=== PATIENT | male | born 1930 | race Caucasian/White ===

== ENCOUNTER 2017-08-21 13:23 | Emergency (ER) | payer MEDICARE, OTHER ==
[~2017-08-21] VITALS: Ht 165.1 cm; Wt 62.0 kg
[~2017-08-21 13:23] MED LIST: AMLO2.5C PO; DICL1GEL7 TOPICAL; MELO15TA20 PO; PROT40TA PO; TRAM50TA PO; TRIA1SPR6 EACH NARE; VITA10004 PO
[2017-08-21 13:47] VITALS: BP 113/55; PULSE 95; RESP 17; TEMP 98.9; O2SAT 96
[2017-08-21] MEDS ORDERED: CEPH-460 PO (14:03)
--- NOTE | 2017-08-21 14:03 | PD ---
HPI Chief Complaint: Skin Problem Time Seen by Provider: 13:52 Travel History International Travel<30 days: No Contact w/Intl Traveler<30days: No Traveled to known affect area: No History of Present Illness HPI 86-year-old male originally from [place], presents to the emergency department with itchy erythematous somewhat tender spot to the left dorsal foot for the past several days. He states he is more itchy than tender. He has been using topical nonsteroidal cream with some improvement. He denies fever, chills, or significant pain. He states his is worried which is why he came in today. He has no other acute complaints. He has no known drug allergies. PFSH Past Medical History Cancer: No Cardiovascular Problems: No Diabetes: No Endocrine: No Gastrointestinal Disorders: Yes (GERD) Hepatitis: No Hiatal Hernia: No Hypertension: Yes Immune Disorder: No Musculoskeletal: No Neurologic: No Psychiatric: No Respiratory: No Thyroid Disease: No Past Surgical History Abdominal Surgery: No AICD: No Body Medical Devices: N/A Cardiac Surgery: No Ear Surgery: No Endocrine Surgery: No Eye Surgery: Yes (cataracts) Genitourinary Surgery: Yes (??HYDROCELECTOMY) Joint Replacement: No Oral Surgery: Yes Pacemaker: No Thoracic Surgery: No Tonsillectomy: Yes Social History Alcohol Use: Yes (sometimes) Tobacco Use: No Substance Use: No Allergies-Medications (Allergen,Severity, Reaction): Coded Allergies: No Known Allergies (Unverified Adverse Reaction, Unknown, 08/21/17) Reported Meds & Prescriptions Reported Meds & Active Scripts Active Amlodipine-Benazepril 2.5-10 Mg Cap 1 Cap PO DAILY Review of Systems Except as stated in HPI: all other systems reviewed are Neg General / Constitutional: No: Fever Eyes: No: Visual changes HENT: No: Headaches Cardiovascular: No: Chest Pain or Discomfort Respiratory: No: Shortness of Breath Gastrointestinal: No: Abdominal Pain Genitourinary: No: Dysuria Musculoskeletal: No: Pain Skin: Positive Itching (See history of present illness), Positive Lesions, No Rash Neurologic: No: Weakness Psychiatric: No: Depression Endocrine: No: Polydipsia Hematologic/Lymphatic: No: Easy Bruising Physical Exam Narrative GENERAL: Patient is in no acute distress. SKIN: Warm and dry. Normal color. Normal turgor. Somewhat atrophic. Patient has a area of erythema and mild swelling measuring approximately 1 inch in diameter, on the dorsal left foot, without signs of significant abscess or lymphangitis. HEAD: Atraumatic. Normocephalic. EYES: Pupils equal and round. No scleral icterus. No injection or drainage. ENT: No nasal bleeding or discharge. Mucous membranes pink and moist. Pharynx is clear. Airways patent. NECK: Trachea midline. No JVD. Supple and nontender. CARDIOVASCULAR: Regular rate and rhythm. RESPIRATORY: No accessory muscle use. Clear to auscultation. Breath sounds equal bilaterally. MUSCULOSKELETAL: Extremities without clubbing, cyanosis, or edema. No obvious deformities. No significant tenderness with palpation or movement. NEUROLOGICAL: Awake and alert. No obvious cranial nerve deficits. Motor grossly within normal limits. Five out of 5 muscle strength in the arms and legs. Normal speech. PSYCHIATRIC: Appropriate mood and affect; insight and judgment normal. Data Data Last Documented VS Vital Signs Date Time Temp Pulse Resp B/P (MAP) Pulse Ox O2 Delivery O2 Flow Rate FiO2 08/21/17 13:47 98.9 95 17 113/55 (74) 96 MDM Medical Decision Making Medical Screen Exam Complete: Yes Emergency Medical Condition: Yes Differential Diagnosis Insect bite. Cellulitis. Gout. Narrative Course Patient will be covered with Keflex 500 mg 3 times daily for 7 days. Patient can continue with nonsteroidal topical cream as previously. Patient should follow-up if symptoms do not improve or worsen as needed. Diagnosis Primary Impression: Insect bite of left foot with local reaction Qualified Codes: S90.862A - Insect bite (nonvenomous), left foot, initial encounter; W57.XXXA - Bitten or stung by nonvenomous insect and other nonvenomous arthropods, initial encounter Patient Instructions: General Instructions, Insect Bite or Sting (DC) Additional Instructions: Patient will be covered with Keflex 500 mg 3 times daily for 7 days. Patient can continue with nonsteroidal topical cream as previously. Patient should follow-up if symptoms do not improve or worsen as needed. Med/Other Pt SpecificInfo: Prescription(s) given Disposition: DISCHARGE HOME Condition: Stable Pradip Brownlee Aug 21, 2017 14:03
== END 2017-08-21 14:28 | disposition home or self-care (01) ==
LOC: NEPK 13:23
DX: S90.862A Insect bite (nonvenomous), left foot, initial encounter (principal); W57.XXXA Bitten or stung by nonvenomous insect and other nonvenomous arthropods, initial encounter
CPT/HCPCS: 99283